=== PATIENT | female | born 1980 ===

== ENCOUNTER 2024-10-24 05:40 | Inpatient (IN) | payer OTHER ==
[2024-10-12 10:39] VITALS: BP 122/86
[2024-10-12 10:39] LABS: URINE APPEARANCE Cloudy; URINE BILIRRUBIN Negative (NEGATIVE); URINE BLOOD Trace; URINE COLOR Dark Yellow; URINE GLUCOSE Negative (NEGATIVE); URINE KETONE Trace (NEGATIVE); URINE LEUKOCYTE Trace; URINE NITRATE Negative; URINE PROTEIN Trace (NEGATIVE)
[2024-10-12 10:40] LABS: URINE BACTERIA 751.4 uL (0.0-1933); URINE EPITHELIAL CELLS 116.6 uL (0.0-38.8); URINE RBC 17.9 uL (0.0-20.8)
[2024-10-12 10:55] LABS: HEMATOCRIT 31.6 % (36.0-45.00); MEAN CORPUSCULAR HEMOGLOBIN 18.4 pg (27.00-32.0); MEAN CORPUSCULAR HGB CONC 30.2 g/dl (32.0-36.0); PLATELET COUNT 295 K/uL (150-450); RED BLOOD COUNT 5.19 M/uL (4.00-6.00); RED CELL DISTRIBUTION WIDTH 20.4 % (11.5-14.5)
[2024-10-12 10:56] LABS: HEMOGLOBIN 9.6 g/dL (12.0-15.00); MEAN CELL VOLUME 60.8 fL (80.00-100.00)
[2024-10-12 11:11] LABS: PROTHROMBIN TIME 10.9 SECONDS (9.0-11.5)
[2024-10-12 11:22] LABS: ALBUMIN 3.8 gm/dL (3.4-5.0); BILIRUBIN TOTAL 0.46 mg/dL (0.3-1.2); CALCIUM 9.1 mg/dL (8.5-10.1); CREATININE SERUM 0.73 mg/dL (0.55-1.02); GFR 87.01; GLOBULINA 3.9 G/DL (2.4-3.5); POTASSIUM 3.78 mEq/L (3.5-5.1); TOTAL PROTEIN 7.7 gm/dL (6.4-8.2)
[2024-10-12 11:26] LABS: URINE CAST 0.88 uL (0.0-1.40)
[2024-10-12 12:15] LABS: RH POSITIVE
[~2024-10-24] VITALS: Ht 160 cm; Wt 81.6 kg
[2024-10-24] MEDS ORDERED: DEXAMETHASONE SODIUM PHOSPHATE 4 MG/ML VIAL ONE (07:13)
[2024-10-24] MEDS ORDERED: ONDANSETRON HCL 2 MG/ML VIAL IV PRN (11:00)
[2024-10-24] MEDS ORDERED: ENALAPRILAT DIHYDRATE 1.25 MG/ML VIAL IV PRN (11:00)
[2024-10-24] MEDS ORDERED: MORPHINE SULFATE 4 MG/ML VIAL IV ONE (11:10)
[2024-10-24 14:29] VITALS: BP 148/90; O2SAT 96
[2024-10-24] MEDS ORDERED: TRAMADOL HCL 50 MG TABLET PO SCH (17:00)
[2024-10-24] MEDS ORDERED: CALCITRIOL 0.5 MCG CAPSULE PO SCH (17:00)
[2024-10-24] MEDS ORDERED: ACETAMINOPHEN 500 MG GEL..CAP PO SCH (17:00)
[2024-10-24] MEDS ORDERED: GABAPENTIN 100 MG CAPSULE PO SCH (17:00)
[2024-10-24] MEDS ORDERED: CYCLOBENZAPRINE HCL 5 MG TABLET PO SCH (17:00)
[2024-10-24 17:39] VITALS: BP 151/92; O2SAT 98
[2024-10-24] MEDS ORDERED: Calcium Carbonate 1 TAB TABLET PO SCH ×2 (21:00)
[2024-10-24] MEDS ORDERED: PANTOPRAZOLE SODIUM 40 MG/VIAL VIAL IV PUSH SCH (21:00)
[2024-10-25 01:12] VITALS: BP 127/78; O2SAT 95
[2024-10-25] MEDS ORDERED: LEVOTHYROXINE SODIUM 125 MCG TABLET PO SCH (07:00)
== END 2024-10-25 12:00 | disposition home or self-care (01) | DRG 627 ==
LOC: CIR.AMB 05:40 → O/R 12:41 → SURH 14:07 → CIR.AMB 16:00 → SURH 10-25 12:00
PROVIDERS: ADMIT Surgery; ATTEND Surgery
PROC: 0GTK0ZZ Resection of Thyroid Gland, Open Approach (ICD-10-PCS; principal; 2024-10-24 16:00)
DX: E04.2 Nontoxic multinodular goiter (principal)